=== PATIENT | female | born 1930 | race Asian ===

== ENCOUNTER 2016-10-21 21:32 | Inpatient (IN) | payer MEDICARE, MEDICAID ==
[~2016-10-21] VITALS: Ht 162.6 cm; Wt 70.0 kg
[~2016-10-21 21:32] MED LIST: ACET325T21 PO; AMLO10TA2 PO; AMLO5TAB2 PO; ASPI-515 PO; AZIT500T77 PO; CARV6.252 PO; CEPH-376 PO; FAMO20TA7 PO; FLUT1DIS3 INH; FURO20TA3 PO; GUAI200T3 PO; LEVO750T26 PO; LISI-170 PO; METF500T PO; METO25TA35 PO; METO50TA82 PO; OMEP-110 PO; OMEP40CA6 PO; POTA20TA14 PO
[2016-10-21] MEDS ORDERED: SODIUM CHLORIDE FLUSH 10ML SYR IVF ONE (23:00)
[2016-10-21] MEDS ORDERED: MORPHINE SULFATE 4 MG/ML, 1ML IVPush PRN (23:00)
[2016-10-21 23:08] LABS: PATH.CAST-FLAG NOT PRESENT; SPERM-FLAG NOT PRESENT; SRC-FLAG NOT PRESENT; XTAL-FLAG NOT PRESENT; YLC-FLAG NOT PRESENT
[2016-10-21 23:19] LABS: BLOOD UREA NITROGEN 15 mg/dL (7-18)
[2016-10-21 23:22] LABS: ASPARTATE AMINO TRANSFERASE 20 U/L (15-37)
[2016-10-21 23:38] LABS: DIFF TOTAL CELLS COUNTED 100 CELL DIFF
[2016-10-21 23:40] LABS: VERIFY COUNTS? YES
[2016-10-21 23:41] LABS: ANISOCYTOSIS 1+; POLYCHROMASIA 1+
[2016-10-21 23:42] LABS: MICROCYTOSIS 1+
[2016-10-21 23:43] LABS: LARGE PLATELETS 1+
[2016-10-22] VITALS (11 sets, daily range): BP systolic 101–159; BP diastolic 61–78
[2016-10-22] MEDS ORDERED: VANCOMYCIN PMX 1GM/200ML 200 ML IV ONE
[2016-10-22] MEDS ORDERED: ACYCLOVIR IV ONE
[2016-10-22] MEDS ORDERED: SODIUM CHLORIDE 0.9% IV ONE
[2016-10-22] MEDS ORDERED: AMPICILLIN 1 GM in SODIUM CHLORIDE 0.9% 50 ML IV ONE
[2016-10-22] MEDS ORDERED: CEFTRIAXONE PMX 1GM/50ML 0 ML ONE (00:17)
[2016-10-22] MEDS ORDERED: CEFTRIAXONE PMX 2GM/50ML 50 ML ONE (00:19)
[2016-10-22] MEDS ORDERED: CEFTRIAXONE PMX 2GM/50ML 50 ML IVPB ONE (00:30)
[2016-10-22] MEDS ORDERED: OMNIPAQUE 350 MG/ML, 100ML BOTTLE ONE (00:38)
[2016-10-22] MEDS ORDERED: VANCOMYCIN PER PHARMACY MC PRN (05:00)
[2016-10-22] MEDS ORDERED: PHARMACOKINETIC MONITORING MC PRN (06:00)
[2016-10-22] MEDS ORDERED: MORPHINE SULFATE 4 MG/ML, 1ML IVPush PRN (06:00)
[2016-10-22] MEDS ORDERED: AMPICILLIN 1 GM in SODIUM CHLORIDE 0.9% 50 ML IV SCH (06:00)
[2016-10-22] MEDS: INSULIN ASPART 100 UNITS/ML, PEN SQ-INSULIN SCH ×4 (07:00→20:44)
[2016-10-22] MEDS: PIPERACILLIN/TAZO/PMX 3.375GM 50 ML IV SCH ×2 (11:00→19:00)
[2016-10-22] MEDS: PIPERACILLIN/TAZO 3.375 GM in SODIUM CHLORIDE 0.9% 50 ML IV SCH ×2 (11:53→20:43)
[2016-10-22] MEDS: SODIUM CHLORIDE 0.9% 1,000 ML IV SCH ×2 (11:53→23:20)
[2016-10-22] MEDS: ACYCLOVIR 600 MG in SODIUM CHLORIDE 0.9% 100 ML IV SCH ×2 (12:29→21:37)
[2016-10-22 12:49] LABS: RAPID INFLUENZA A Negative (Negative); RAPID INFLUENZA B Negative (Negative)
[2016-10-22] MEDS ORDERED: DIPHENHYDRAMINE 25 MG CAPSULE PO ONE (13:30)
[2016-10-22] MEDS ORDERED: FUROSEMIDE 20 MG TABLET PO SCH (17:00)
[2016-10-22] MEDS ORDERED: CARVEDILOL 6.25 MG TABLET PO SCH (18:00)
[2016-10-23] MEDS ORDERED: CEFTRIAXONE PMX 2GM/50ML 50 ML IVPB SCH
[2016-10-23 02:26] VITALS: BP 155/79
[2016-10-23] MEDS: PIPERACILLIN/TAZO/PMX 3.375GM 50 ML IV SCH ×2 (03:00→04:13)
[2016-10-23] MEDS: ACYCLOVIR 600 MG in SODIUM CHLORIDE 0.9% 100 ML IV SCH ×3 (05:24→23:53)
[2016-10-23 05:39] LABS: ASPARTATE AMINO TRANSFERASE 22 U/L (15-37); BLOOD UREA NITROGEN 12 mg/dL (7-18)
[2016-10-23 06:35] VITALS: BP 136/68
[2016-10-23] MEDS ORDERED: AMLODIPINE 5 MG TABLET PO SCH (09:00)
[2016-10-23] MEDS: INSULIN ASPART 100 UNITS/ML, PEN SQ-INSULIN SCH ×4 (09:30→21:05)
[2016-10-23] MEDS ORDERED: LIDOCAINE 1%, 20ML ONE (11:55)
[2016-10-23] MEDS: CEFEPIME 1 GM in DEXTROSE 5% 50 ML IV SCH ×2 (13:15→20:50)
[2016-10-23 14:02] VITALS: BP 161/72
[2016-10-23 15:26] LABS: GLUCOSE, CSF 111 mg/dL (40-80)
[2016-10-23] MEDS ORDERED: BACITRACIN ZINC OINT 500U/GM, 0.9 GM ONE (16:00)
[2016-10-23] MEDS ORDERED: VANCOMYCIN PMX 1GM/200ML 200 ML IV SCH (17:00)
[2016-10-23 19:38] VITALS: BP 170/73
[2016-10-24 03:33] VITALS: BP 197/80
[2016-10-24] MEDS: CEFEPIME 1 GM in DEXTROSE 5% 50 ML IV SCH ×2 (04:28→11:45)
[2016-10-24] MEDS ORDERED: LABETALOL 5MG/ML, 20ML IVPush PRN ×2 (04:30→12:47)
[2016-10-24 05:55] LABS: BLOOD UREA NITROGEN 9 mg/dL (7-18)
[2016-10-24] MEDS: ACYCLOVIR 600 MG in SODIUM CHLORIDE 0.9% 100 ML IV SCH ×2 (07:50→17:06)
[2016-10-24] MEDS: INSULIN ASPART 100 UNITS/ML, PEN SQ-INSULIN SCH ×4 (07:51→21:27)
[2016-10-24 08:00] VITALS: BP 158/68
[2016-10-24 10:35] VITALS: BP 137/68
[2016-10-24 13:20] VITALS: BP 155/69
[2016-10-24 19:27] VITALS: BP 178/73
[2016-10-24] MEDS ORDERED: ALBUTEROL SULFATE 2.5 MG/3 ML ONE (23:38)
[2016-10-24] MEDS: ALBUTEROL SULFATE 2.5MG/0.5ML NPPB SCH (23:57)
[2016-10-25] MEDS ORDERED: FUROSEMIDE 40 MG/4 ML IV ONE
[2016-10-25] MEDS: ACYCLOVIR 600 MG in SODIUM CHLORIDE 0.9% 100 ML IV SCH ×3 (00:20→16:20)
[2016-10-25 01:19] VITALS: BP 159/65
[2016-10-25 05:17] LABS: BLOOD UREA NITROGEN 8 mg/dL (7-18)
[2016-10-25 05:54] LABS: DIFF TOTAL CELLS COUNTED 100 CELL DIFF
[2016-10-25 06:00] LABS: ANISOCYTOSIS 1+; POLYCHROMASIA 1+; VERIFY COUNTS? YES
[2016-10-25 06:01] LABS: GIANT PLATELETS 1+; LARGE PLATELETS 1+
[2016-10-25 06:02] LABS: MICROCYTOSIS 1+
[2016-10-25 06:41] VITALS: BP 170/80
[2016-10-25] MEDS ORDERED: ALBUTEROL SULFATE 2.5 MG/3 ML ONE ×2 (07:46→14:08)
[2016-10-25] MEDS: ALBUTEROL SULFATE 2.5MG/0.5ML NPPB SCH (07:55)
[2016-10-25] MEDS: INSULIN ASPART 100 UNITS/ML, PEN SQ-INSULIN SCH ×4 (08:11→20:56)
[2016-10-25] MEDS ORDERED: SODIUM CHLORIDE 0.9% 1,000 ML IV SCH (11:00)
[2016-10-25 13:39] VITALS: BP 179/96
[2016-10-25] MEDS ORDERED: ALBUTEROL SULFATE 2.5MG/0.5ML NPPB PRN (15:00)
[2016-10-25] MEDS ORDERED: FUROSEMIDE 20 MG/2 ML IV ONE (18:00)
[2016-10-25 18:53] VITALS: BP 188/100
[2016-10-25 19:05] LABS: ABG COLLECTION SITE RIGHT RADIAL; COLLATERAL CIRCULATION TESTING NORMAL
[2016-10-26] MEDS: ACYCLOVIR 600 MG in SODIUM CHLORIDE 0.9% 100 ML IV SCH ×2 (00:22→08:08)
[2016-10-26 02:45] VITALS: BP 140/87
[2016-10-26 06:19] LABS: BLOOD UREA NITROGEN 13 mg/dL (7-18)
[2016-10-26 06:54] LABS: DIFF TOTAL CELLS COUNTED 100 CELL DIFF
[2016-10-26 06:56] LABS: VERIFY COUNTS? YES
[2016-10-26 06:58] LABS: ANISOCYTOSIS 1+; GIANT PLATELETS 1+; LARGE PLATELETS 1+
[2016-10-26 06:59] LABS: POLYCHROMASIA 1+
[2016-10-26 07:59] VITALS: BP 168/96
[2016-10-26] MEDS: HYDROcodone/APAP 5/325 TABLET PO PRN ×2 (08:07→21:44)
[2016-10-26] MEDS: FUROSEMIDE 20 MG TABLET PO SCH ×2 (08:08→16:23)
[2016-10-26] MEDS: INSULIN ASPART 100 UNITS/ML, PEN SQ-INSULIN SCH ×4 (08:08→20:41)
[2016-10-26] MEDS ORDERED: SODIUM CHLORIDE 0.9% 1,000 ML IV SCH (11:00)
[2016-10-26 13:38] VITALS: BP 111/70
[2016-10-26] MEDS ORDERED: OMNIPAQUE 350 MG/ML, 100ML BOTTLE ONE (15:11)
[2016-10-26 19:42] VITALS: BP 162/81
[2016-10-27 01:26] VITALS: BP 151/87
[2016-10-27 05:30] LABS: BLOOD UREA NITROGEN 21 mg/dL (7-18)
[2016-10-27 05:41] LABS: DIFF TOTAL CELLS COUNTED 100 CELL DIFF
[2016-10-27 05:44] LABS: ANISOCYTOSIS 1+; HYPOCHROMIA 1+; VERIFY COUNTS? YES
[2016-10-27 05:46] LABS: LARGE PLATELETS 1+
[2016-10-27 09:08] VITALS: BP 158/80
[2016-10-27] MEDS: FUROSEMIDE 20 MG TABLET PO SCH ×2 (09:17→17:00)
[2016-10-27] MEDS: INSULIN ASPART 100 UNITS/ML, PEN SQ-INSULIN SCH ×4 (09:18→21:22)
[2016-10-27 12:30] VITALS: BP 145/80
[2016-10-27] MEDS: HYDROcodone/APAP 5/325 TABLET PO PRN ×2 (15:36→21:31)
[2016-10-27 19:46] VITALS: BP 108/63
[2016-10-28 01:05] VITALS: BP 149/79
[2016-10-28] MEDS: HYDROcodone/APAP 5/325 TABLET PO PRN ×3 (04:30→20:18)
[2016-10-28 05:23] LABS: BLOOD UREA NITROGEN 21 mg/dL (7-18)
[2016-10-28 05:57] LABS: DIFF TOTAL CELLS COUNTED 100 CELL DIFF
[2016-10-28 05:58] LABS: ANISOCYTOSIS 1+; HYPOCHROMIA 1+; VERIFY COUNTS? YES
[2016-10-28 05:59] LABS: LARGE PLATELETS 1+
[2016-10-28 07:29] VITALS: BP 145/83
[2016-10-28] MEDS: FUROSEMIDE 20 MG TABLET PO SCH ×2 (07:45→17:17)
[2016-10-28] MEDS: INSULIN ASPART 100 UNITS/ML, PEN SQ-INSULIN SCH ×4 (07:51→20:20)
[2016-10-28 12:43] VITALS: BP 158/81
[2016-10-28] MEDS: DILTIAZEM 5 MG/ML, 5ML IVPush PRN (17:52)
[2016-10-28 20:04] VITALS: BP 158/85
[2016-10-29 00:41] VITALS: BP 158/87
[2016-10-29] MEDS: DILTIAZEM 5 MG/ML, 5ML IVPush PRN (00:44)
[2016-10-29] MEDS: HYDROcodone/APAP 5/325 TABLET PO PRN ×4 (03:54→20:19)
[2016-10-29 04:58] LABS: BLOOD UREA NITROGEN 13 mg/dL (7-18)
[2016-10-29 05:38] LABS: DIFF TOTAL CELLS COUNTED 100 CELL DIFF
[2016-10-29 05:40] LABS: ANISOCYTOSIS 1+; VERIFY COUNTS? YES
[2016-10-29 05:43] LABS: HYPOCHROMIA 1+
[2016-10-29 05:44] LABS: LARGE PLATELETS 1+
[2016-10-29 07:42] VITALS: BP 151/83
[2016-10-29] MEDS: INSULIN ASPART 100 UNITS/ML, PEN SQ-INSULIN SCH ×4 (08:11→20:20)
[2016-10-29] MEDS: FUROSEMIDE 20 MG TABLET PO SCH ×2 (08:21→16:29)
[2016-10-29] MEDS ORDERED: DILTIAZEM 5 MG/ML, 5ML IVPush PRN (09:00)
[2016-10-29] MEDS ORDERED: POTASSIUM CHLORIDE 20 MEQ TAB.ER.PRT PO ONE (09:00)
[2016-10-29 10:17] LABS: ABG COLLECTION SITE RIGHT RADIAL; COLLATERAL CIRCULATION TESTING NORMAL
[2016-10-29] MEDS: CHOLECALCIFEROL 1,000 UNIT TABLET PO SCH (11:35)
[2016-10-29 11:38] LABS: IS PT STATUS REG ER OR PRE ER? NO
[2016-10-29 13:45] VITALS: BP_SYST 138; BP_SYST 53; BP_DIAS 75; BP_DIAS 81
[2016-10-29 16:27] LABS: IS PT STATUS REG ER OR PRE ER? NO
[2016-10-29] MEDS: DILTIAZEM 30 MG TABLET PO SCH ×2 (16:31→20:19)
[2016-10-29 18:59] VITALS: BP 119/73
[2016-10-29 20:22] VITALS: BP 130/61
[2016-10-30 01:06] VITALS: BP 120/66
[2016-10-30] MEDS: HYDROcodone/APAP 5/325 TABLET PO PRN ×5 (01:33→20:21)
[2016-10-30] MEDS: DILTIAZEM 30 MG TABLET PO SCH ×4 (05:33→20:21)
[2016-10-30 06:21] LABS: BLOOD UREA NITROGEN 14 mg/dL (7-18)
[2016-10-30 06:51] LABS: DIFF TOTAL CELLS COUNTED 100 CELL DIFF
[2016-10-30 06:53] LABS: VERIFY COUNTS? YES
[2016-10-30 06:54] LABS: ANISOCYTOSIS 1+; HYPOCHROMIA 1+
[2016-10-30 06:56] LABS: LARGE PLATELETS 1+
[2016-10-30] MEDS: INSULIN ASPART 100 UNITS/ML, PEN SQ-INSULIN SCH ×4 (07:00→20:21)
[2016-10-30 07:47] VITALS: BP 110/71
[2016-10-30] MEDS: FUROSEMIDE 20 MG TABLET PO SCH ×2 (08:27→16:29)
[2016-10-30] MEDS: CHOLECALCIFEROL 1,000 UNIT TABLET PO SCH (08:27)
[2016-10-30 13:37] VITALS: BP 132/75
[2016-10-30 19:48] VITALS: BP 124/57
[2016-10-31] MEDS: HYDROcodone/APAP 5/325 TABLET PO PRN ×4 (01:29→21:29)
[2016-10-31 01:36] VITALS: BP 115/68
[2016-10-31 05:11] LABS: BLOOD UREA NITROGEN 16 mg/dL (7-18)
[2016-10-31] MEDS: DILTIAZEM 30 MG TABLET PO SCH ×4 (05:23→21:30)
[2016-10-31 06:48] VITALS: BP 122/55
[2016-10-31] MEDS: INSULIN ASPART 100 UNITS/ML, PEN SQ-INSULIN SCH ×4 (08:53→21:33)
[2016-10-31] MEDS: FUROSEMIDE 20 MG TABLET PO SCH ×2 (08:54→17:03)
[2016-10-31] MEDS: CHOLECALCIFEROL 1,000 UNIT TABLET PO SCH (08:54)
[2016-10-31 13:12] VITALS: BP 116/66
[2016-10-31 13:31] LABS: ANA SCREEN POSITIVE (Negative)
[2016-10-31 19:02] VITALS: BP 118/68
[2016-10-31] MEDS: ALBUTEROL/IPRATROPIUM 2.5MG/0.5MG, 3 ML NPPB SCH (20:59)
[2016-10-31] MEDS ORDERED: TEMPLATE NON-FORMULARY MED. (Fluticasone/Salmeterol** (Advair 250-50 Diskus**) 1 PUFF) INH SCH (21:00)
[2016-10-31] MEDS: DEXAMETHASONE 4 MG/ML, 5ML IVPush SCH (21:30)
[2016-11-01 02:18] VITALS: BP 112/60
[2016-11-01] MEDS: DEXAMETHASONE 4 MG/ML, 5ML IVPush SCH ×4 (04:44→21:03)
[2016-11-01] MEDS: HYDROcodone/APAP 5/325 TABLET PO PRN ×2 (04:44→21:04)
[2016-11-01] MEDS: DILTIAZEM 30 MG TABLET PO SCH ×4 (04:55→21:03)
[2016-11-01 05:47] LABS: BLOOD UREA NITROGEN 16 mg/dL (7-18)
[2016-11-01 06:25] LABS: DIFF TOTAL CELLS COUNTED 100 CELL DIFF
[2016-11-01 06:26] LABS: VERIFY COUNTS? YES
[2016-11-01 06:27] LABS: ANISOCYTOSIS 1+; MICROCYTOSIS 1+; POLYCHROMASIA 1+
[2016-11-01 06:28] LABS: LARGE PLATELETS 1+
[2016-11-01 07:43] VITALS: BP 120/75
[2016-11-01 08:13] LABS: WESTNILEVIRUSIGG SEE PRINTED REPORT; WESTNILEVIRUSIGM SEE PRINTED REPORT
[2016-11-01] MEDS: ALBUTEROL/IPRATROPIUM 2.5MG/0.5MG, 3 ML NPPB SCH ×2 (08:50→19:30)
[2016-11-01] MEDS: INSULIN ASPART 100 UNITS/ML, PEN SQ-INSULIN SCH ×4 (09:33→21:04)
[2016-11-01] MEDS: FUROSEMIDE 20 MG TABLET PO SCH ×2 (09:33→16:46)
[2016-11-01] MEDS: CHOLECALCIFEROL 1,000 UNIT TABLET PO SCH (09:34)
[2016-11-01] MEDS: FLUTICASONE/VILANTEROL 200-25MCG/INH INH SCH (10:28)
[2016-11-01] MEDS ORDERED: MAGNESIUM HYDROXIDE 8%, 30ML UDC PO PRN (13:30)
[2016-11-01] MEDS ORDERED: POLYETHYLENE GLYCOL 17 GM PACKET PO PRN (13:30)
[2016-11-01 13:51] VITALS: BP 114/52
[2016-11-01 19:58] VITALS: BP 112/58
[2016-11-02] MEDS: DEXAMETHASONE 4 MG/ML, 5ML IVPush SCH ×4 (03:15→21:07)
[2016-11-02] MEDS: HYDROcodone/APAP 5/325 TABLET PO PRN ×2 (04:01→21:09)
[2016-11-02 05:54] VITALS: BP 124/65
[2016-11-02] MEDS: DILTIAZEM 30 MG TABLET PO SCH ×4 (05:59→21:08)
[2016-11-02 07:48] VITALS: BP 120/67
[2016-11-02] MEDS: ALBUTEROL/IPRATROPIUM 2.5MG/0.5MG, 3 ML NPPB SCH ×2 (09:00→19:10)
[2016-11-02] MEDS: CHOLECALCIFEROL 1,000 UNIT TABLET PO SCH (09:23)
[2016-11-02] MEDS: FLUTICASONE/VILANTEROL 200-25MCG/INH INH SCH (09:23)
[2016-11-02] MEDS: FUROSEMIDE 20 MG TABLET PO SCH ×2 (09:23→16:20)
[2016-11-02] MEDS: INSULIN ASPART 100 UNITS/ML, PEN SQ-INSULIN SCH ×4 (09:24→21:09)
[2016-11-02 13:00] VITALS: BP 118/61
[2016-11-02] MEDS: ARTIFICIAL TEARS OPHTH SOLN 15ML EACHEYE PRN (16:20)
[2016-11-02 18:51] VITALS: BP 119/58
[2016-11-03 00:54] VITALS: BP 128/63
[2016-11-03] MEDS: DEXAMETHASONE 4 MG/ML, 5ML IVPush SCH ×4 (03:21→21:36)
[2016-11-03 05:16] LABS: BLOOD UREA NITROGEN 33 mg/dL (7-18)
[2016-11-03] MEDS: DILTIAZEM 30 MG TABLET PO SCH ×4 (05:26→21:36)
[2016-11-03 06:48] VITALS: BP 123/64
[2016-11-03] MEDS: INSULIN ASPART 100 UNITS/ML, PEN SQ-INSULIN SCH ×4 (08:32→21:43)
[2016-11-03] MEDS: FUROSEMIDE 20 MG TABLET PO SCH ×2 (08:33→16:47)
[2016-11-03] MEDS: FLUTICASONE/VILANTEROL 200-25MCG/INH INH SCH (08:33)
[2016-11-03] MEDS: CHOLECALCIFEROL 1,000 UNIT TABLET PO SCH (08:33)
[2016-11-03] MEDS: ALBUTEROL/IPRATROPIUM 2.5MG/0.5MG, 3 ML NPPB SCH ×2 (10:50→19:42)
[2016-11-03] MEDS ORDERED: INSULIN ASPART 100 UNITS/ML, PEN SQ-INSULIN ONE (12:30)
[2016-11-03 14:27] VITALS: BP 127/66
[2016-11-03] MEDS: HYDROcodone/APAP 5/325 TABLET PO PRN ×2 (16:47→22:38)
[2016-11-03 18:55] VITALS: BP 125/71
[2016-11-04 02:35] VITALS: BP 115/57
[2016-11-04] MEDS: DEXAMETHASONE 4 MG/ML, 5ML IVPush SCH ×3 (03:20→15:47)
[2016-11-04] MEDS: DILTIAZEM 30 MG TABLET PO SCH ×2 (05:36→11:34)
[2016-11-04 07:01] VITALS: BP 118/63
[2016-11-04] MEDS: CHOLECALCIFEROL 1,000 UNIT TABLET PO SCH (08:46)
[2016-11-04] MEDS: FUROSEMIDE 20 MG TABLET PO SCH ×2 (08:46→16:22)
[2016-11-04] MEDS: FLUTICASONE/VILANTEROL 200-25MCG/INH INH SCH (08:46)
[2016-11-04] MEDS: INSULIN ASPART 100 UNITS/ML, PEN SQ-INSULIN SCH ×3 (08:47→16:20)
[2016-11-04] MEDS: ARTIFICIAL TEARS OPHTH SOLN 15ML EACHEYE PRN ×2 (08:53→18:18)
[2016-11-04 13:59] VITALS: BP 143/68
[2016-11-04 18:36] VITALS: BP 120/65
[2016-11-05] MEDS: ARTIFICIAL TEARS OPHTH SOLN 15ML EACHEYE PRN ×2 (00:04→07:57)
[2016-11-05] MEDS: INSULIN ASPART 100 UNITS/ML, PEN SQ-INSULIN SCH ×4 (00:15→17:16)
[2016-11-05 00:34] VITALS: BP 133/75
[2016-11-05 07:30] VITALS: BP 158/77
[2016-11-05] MEDS: CHOLECALCIFEROL 1,000 UNIT TABLET PO SCH (07:55)
[2016-11-05] MEDS: FUROSEMIDE 20 MG TABLET PO SCH ×2 (07:56→17:16)
[2016-11-05] MEDS: FLUTICASONE/VILANTEROL 200-25MCG/INH INH SCH (07:56)
[2016-11-05] MEDS ORDERED: DILTIAZEM 120 MG CAP.ER.24H PO SCH (09:00)
[2016-11-05 12:57] VITALS: BP 145/62
[2016-11-05] MEDS ORDERED: DILT120C9 PO (14:18)
== END 2016-11-05 17:20 | disposition home or self-care (01) | DRG 97 ==
LOC: ED 23:59 → EDIP 10-22 01:28 → 3NE 10-22 03:30 → 4WST 10-27 12:09
PROVIDERS: ADMIT Internal Medicine; ATTEND Internal Medicine
PROC: 009U3ZX Drainage of Spinal Canal, Percutaneous Approach, Diagnostic (ICD-10-PCS; principal; 2016-10-23)
PROC: 30233R1 Transfusion of Nonautologous Platelets into Peripheral Vein, Percutaneous Approach (ICD-10-PCS; 2016-10-23)
DX: G03.0 Nonpyogenic meningitis (principal); J96.21 Acute and chronic respiratory failure with hypoxia; D69.3 Immune thrombocytopenic purpura; D68.69 Other thrombophilia; I50.30 Unspecified diastolic (congestive) heart failure; J44.0 Chronic obstructive pulmonary disease with (acute) lower respiratory infection; M46.20 Osteomyelitis of vertebra, site unspecified; E22.2 Syndrome of inappropriate secretion of antidiuretic hormone; D63.8 Anemia in other chronic diseases classified elsewhere; E03.9 Hypothyroidism, unspecified; E11.9 Type 2 diabetes mellitus without complications; E83.51 Hypocalcemia; G44.52 New daily persistent headache (NDPH); H90.5 Unspecified sensorineural hearing loss; I08.3 Combined rheumatic disorders of mitral, aortic and tricuspid valves; I11.0 Hypertensive heart disease with heart failure; I25.2 Old myocardial infarction; I27.2 Other secondary pulmonary hypertension; I48.0 Paroxysmal atrial fibrillation; K21.9 Gastro-esophageal reflux disease without esophagitis; M19.90 Unspecified osteoarthritis, unspecified site; M50.30 Other cervical disc degeneration, unspecified cervical region; Z77.22 Contact with and (suspected) exposure to environmental tobacco smoke (acute) (chronic); Z86.711 Personal history of pulmonary embolism; Z87.891 Personal history of nicotine dependence; Z91.81 History of falling; Z99.81 Dependence on supplemental oxygen; Z79.899 Other long term (current) drug therapy; Z88.8 Allergy status to other drugs, medicaments and biological substances; M31.6 Other giant cell arteritis
CPT/HCPCS: 36415; 36430; 36600; 62270; 70450; 70492; 70496; 70498; 70551; 71010; 72141; 72146; 74230; 76700; 80048; 80053; 81001; 81170; 81270; 82550; 82668; 82803; 82945; 82947; 82962; 83036; 83605; 83735; 83880; 83930; 83935; 84145; 84157; 84300; 84439; 84443; 84484; 85025; 85540; 85610; 85651; 85730; 86038; 86039; 86140; 86235; 86592; 86788; 86789; 86850; 86900; 87040; 87070; 87075; 87086; 87205; 87400; 87529; 89051; 93005; 93306; 93970; 94640; J0133; J0290; J0692; J0696; J1100; J1815; J1940; J2543; J3370; J3490; J7611; J7620; Q9967; J7030; P9035; Q0163

== ENCOUNTER 2016-11-22 15:23 | Emergency (ER) | payer MEDICARE, MEDICAID ==
[~2016-11-22] VITALS: Ht 162.6 cm; Wt 59.1 kg
[~2016-11-22 15:23] MED LIST changes: +DILT120C9 PO
[2016-11-22] MEDS ORDERED: SODIUM CHLORIDE 0.9% 1,000 ML IV ONE ×2 (15:45→17:27)
[2016-11-22 16:16] LABS: ASPARTATE AMINO TRANSFERASE 9 U/L (15-37); BLOOD UREA NITROGEN 14 mg/dL (7-18)
[2016-11-22 16:23] LABS: IS PT STATUS REG ER OR PRE ER? YES
[2016-11-22 16:41] LABS: DIFF TOTAL CELLS COUNTED 100 CELL DIFF
[2016-11-22 16:42] LABS: VERIFY COUNTS? YES
[2016-11-22 16:44] LABS: ANISOCYTOSIS 2+; MICROCYTOSIS 1+
[2016-11-22 16:45] LABS: OVALOCYTES 1+; POIKILOCYTOSIS 1+; POLYCHROMASIA 1+
[2016-11-22 16:47] LABS: LARGE PLATELETS 1+
[2016-11-22 17:01] LABS: PATH.CAST-FLAG NOT PRESENT; SPERM-FLAG NOT PRESENT; SRC-FLAG NOT PRESENT; XTAL-FLAG NOT PRESENT; YLC-FLAG NOT PRESENT
[2016-11-22] MEDS ORDERED: SODIUM CHLORIDE FLUSH 10ML SYR IVF ONE (17:30)
[2016-11-22] MEDS ORDERED: CEFTRIAXONE PMX 1GM/50ML 50 ML ONE (19:14)
[2016-11-22] MEDS ORDERED: CEFTRIAXONE PMX 1GM/50ML 50 ML IV ONE (19:30)
[2016-11-22 20:53] VITALS: BP 93/47
== END 2016-11-22 20:56 | disposition home or self-care (01) ==
LOC: ED 17:02
DX: T46.1X5A Adverse effect of calcium-channel blockers, initial encounter (principal); N39.0 Urinary tract infection, site not specified; Y92.9 Unspecified place or not applicable; I11.0 Hypertensive heart disease with heart failure; I50.9 Heart failure, unspecified; J44.9 Chronic obstructive pulmonary disease, unspecified; K21.9 Gastro-esophageal reflux disease without esophagitis; M19.90 Unspecified osteoarthritis, unspecified site
CPT/HCPCS: 36415; 71010; 80053; 81001; 83605; 83690; 84145; 84484; 85025; 85610; 85730; 87040; 87086; 93005; 96361; 96365; 99285; J0696; J7030

== ENCOUNTER 2017-01-21 20:19 | Inpatient (IN) | payer MEDICARE, MEDICAID ==
[~2017-01-21] VITALS: Ht 162.6 cm; Wt 70.6 kg
[~2017-01-21 20:19] MED LIST changes: +AZIT500T5 PO; -AZIT500T77 PO
[2017-01-21] MEDS ORDERED: SODIUM CHLORIDE FLUSH 10ML SYR IVF ONE (21:00)
[2017-01-21 22:01] LABS: ASPARTATE AMINO TRANSFERASE 20 U/L (15-37); BLOOD UREA NITROGEN 13 mg/dL (7-18)
[2017-01-21 22:07] LABS: IS PT STATUS REG ER OR PRE ER? YES
[2017-01-21 22:16] LABS: HEMATOCRIT 29.7 % (34.6-47.8); HEMOGLOBIN 9.4 g/dL (11.7-16.4); WHITE BLOOD COUNT 39.8 x10^3/uL (3.4-10)
[2017-01-21 22:19] LABS: DIFF TOTAL CELLS COUNTED 100 CELL DIFF
[2017-01-21 22:30] LABS: VERIFY COUNTS? YES
[2017-01-21 22:31] LABS: ANISOCYTOSIS 1+; POLYCHROMASIA 1+
[2017-01-21 22:32] LABS: MICROCYTOSIS 1+
[2017-01-21 22:33] LABS: HYPOCHROMIA 1+; LARGE PLATELETS 1+
[2017-01-21] MEDS ORDERED: OMNIPAQUE 350 MG/ML, 100ML BOTTLE ONE (23:30)
[2017-01-22] MEDS ORDERED: SODIUM CHLORIDE FLUSH 10ML SYR IVF PRN (01:00)
[2017-01-22] MEDS ORDERED: POLYETHYLENE GLYCOL 17 GM PACKET PO PRN (01:00)
[2017-01-22] MEDS ORDERED: BISACODYL 10 MG SUPP PR PRN (01:00)
[2017-01-22] MEDS ORDERED: ONDANSETRON 2MG/ML, 2ML IVPush PRN (01:00)
[2017-01-22] MEDS ORDERED: ONDANSETRON 2MG/ML, 2ML ONE (01:12)
[2017-01-22] MEDS ORDERED: MORPHINE SULFATE 4 MG/ML, 1ML ONE (01:12)
[2017-01-22] MEDS: SODIUM CHLORIDE 0.9% 1,000 ML IV SCH ×2 (01:21→16:48)
[2017-01-22] MEDS ORDERED: ONDANSETRON 2MG/ML, 2ML IVPush ONE (01:30)
[2017-01-22] MEDS ORDERED: MORPHINE SULFATE 4 MG/ML, 1ML IVPush PRN (01:30)
[2017-01-22 05:03] LABS: HEMATOCRIT 28.4 % (34.6-47.8); HEMOGLOBIN 9.1 g/dL (11.7-16.4)
[2017-01-22 05:07] LABS: ASPARTATE AMINO TRANSFERASE 15 U/L (15-37); BLOOD UREA NITROGEN 12 mg/dL (7-18)
[2017-01-22 05:26] LABS: DIFF TOTAL CELLS COUNTED 100 CELL DIFF
[2017-01-22 05:28] LABS: HYPOCHROMIA 1+; MICROCYTOSIS 1+; POLYCHROMASIA 1+; VERIFY COUNTS? YES
[2017-01-22 05:29] LABS: LARGE PLATELETS 1+
[2017-01-22] MEDS ORDERED: CARVEDILOL 6.25 MG TABLET PO SCH (06:00)
[2017-01-22 06:05] VITALS: BP 140/60
[2017-01-22] MEDS: SENNA/DOCUSATE TABLET PO SCH (08:02)
[2017-01-22] MEDS: ACETAMINOPHEN 325 MG TABLET PO PRN ×2 (08:02→16:46)
[2017-01-22] MEDS ORDERED: AMLODIPINE 5 MG TABLET PO SCH (09:00)
[2017-01-22] MEDS ORDERED: FURO-93 PO (10:08)
[2017-01-22] MEDS ORDERED: CARV3.1212 PO (10:08)
[2017-01-22] MEDS ORDERED: OMEP-110 PO (10:08)
[2017-01-22] MEDS ORDERED: POTA10TA5 PO (10:08)
[2017-01-22] MEDS: FAMOTIDINE 20 MG TABLET PO SCH ×2 (13:18→20:16)
[2017-01-22] MEDS ORDERED: LIDOCAINE 1%, 20ML ONE (16:01)
[2017-01-22 16:15] LABS: IS PT STATUS REG ER OR PRE ER? NO
[2017-01-22 16:36] LABS: CYTOLOGY BODY FLUID RECD INTO PATHOLOGY; CYTOLOGY BODY FLUID SOURCE OTHER - SEE COMMENT
[2017-01-22] MEDS: FLUTICASONE/VILANTEROL 100-25MCG/INH INH SCH (16:48)
[2017-01-22 16:51] VITALS: BP 118/69
[2017-01-22 18:46] VITALS: BP 125/67
[2017-01-22] MEDS: FUROSEMIDE 20 MG TABLET PO SCH (20:16)
[2017-01-23 02:22] VITALS: BP 129/60
[2017-01-23] MEDS: ACETAMINOPHEN 325 MG TABLET PO PRN ×4 (02:55→22:16)
[2017-01-23] MEDS: SODIUM CHLORIDE 0.9% 1,000 ML IV SCH (03:24)
[2017-01-23 05:33] LABS: HEMATOCRIT 26.4 % (34.6-47.8); HEMOGLOBIN 8.4 g/dL (11.7-16.4); WHITE BLOOD COUNT 29.1 x10^3/uL (3.4-10)
[2017-01-23 05:56] LABS: DIFF TOTAL CELLS COUNTED 100 CELL DIFF
[2017-01-23 06:00] LABS: VERIFY COUNTS? YES
[2017-01-23 06:01] LABS: ANISOCYTOSIS 1+; HYPOCHROMIA 1+; POLYCHROMASIA 1+
[2017-01-23 06:02] LABS: LARGE PLATELETS 1+
[2017-01-23 06:14] LABS: ASPARTATE AMINO TRANSFERASE 20 U/L (15-37); BLOOD UREA NITROGEN 14 mg/dL (7-18)
[2017-01-23 07:27] VITALS: BP 117/64
[2017-01-23] MEDS: FLUTICASONE/VILANTEROL 100-25MCG/INH INH SCH (07:41)
[2017-01-23] MEDS: FUROSEMIDE 20 MG TABLET PO SCH ×2 (07:41→19:48)
[2017-01-23] MEDS: SENNA/DOCUSATE TABLET PO SCH (07:41)
[2017-01-23] MEDS: POTASSIUM CHLORIDE 10 MEQ TABLET.ER PO SCH (07:41)
[2017-01-23] MEDS: FAMOTIDINE 20 MG TABLET PO SCH (07:41)
[2017-01-23] MEDS: OMEPRAZOLE 20 MG CAPSULE.DR PO SCH (07:42)
[2017-01-23] MEDS: CARVEDILOL 3.125 MG TABLET PO SCH (07:42)
[2017-01-23 14:17] VITALS: BP 119/61
[2017-01-23] MEDS ORDERED: LIDOCAINE 1%, 20ML ONE (16:10)
[2017-01-23 19:23] VITALS: BP 131/68
[2017-01-24 01:11] VITALS: BP 116/64
[2017-01-24 04:59] LABS: HEMOGLOBIN 8.4 g/dL (11.7-16.4); WHITE BLOOD COUNT 27.6 x10^3/uL (3.4-10)
[2017-01-24 05:05] LABS: BLOOD UREA NITROGEN 9 mg/dL (7-18)
[2017-01-24 05:10] LABS: ASPARTATE AMINO TRANSFERASE 15 U/L (15-37)
[2017-01-24] MEDS: ACETAMINOPHEN 325 MG TABLET PO PRN ×2 (05:32→21:43)
[2017-01-24 05:45] LABS: DIFF TOTAL CELLS COUNTED 100 CELL DIFF
[2017-01-24 05:48] LABS: VERIFY COUNTS? YES
[2017-01-24 05:49] LABS: ANISOCYTOSIS 1+; HYPOCHROMIA 1+; POLYCHROMASIA 1+
[2017-01-24 05:50] LABS: LARGE PLATELETS 1+
[2017-01-24] MEDS: CARVEDILOL 3.125 MG TABLET PO SCH (10:21)
[2017-01-24] MEDS: FAMOTIDINE 20 MG TABLET PO SCH (10:21)
[2017-01-24] MEDS: OMEPRAZOLE 20 MG CAPSULE.DR PO SCH (10:21)
[2017-01-24] MEDS: FLUTICASONE/VILANTEROL 100-25MCG/INH INH SCH (10:21)
[2017-01-24] MEDS: POTASSIUM CHLORIDE 10 MEQ TABLET.ER PO SCH (10:22)
[2017-01-24] MEDS: SENNA/DOCUSATE TABLET PO SCH (10:22)
[2017-01-24] MEDS: FUROSEMIDE 20 MG TABLET PO SCH ×2 (10:25→21:00)
[2017-01-24] MEDS ORDERED: KETOROLAC 30 MG/1 ML IVPush ONE (10:30)
[2017-01-24 12:36] VITALS: BP 124/63
[2017-01-24] MEDS: METHOCARBAMOL 500 MG TABLET PO SCH ×3 (12:57→21:42)
[2017-01-24 18:57] VITALS: BP 139/70
[2017-01-24] MEDS ORDERED: FUROSEMIDE 40 MG TABLET ONE (21:33)
[2017-01-24] MEDS ORDERED: DIPHENHYDRAMINE 50 MG CAPSULE PO PRN (23:30)
[2017-01-25 00:22] VITALS: BP 151/74
[2017-01-25] MEDS ORDERED: KETOROLAC 30 MG/1 ML IVPush ONE (01:00)
[2017-01-25] MEDS: ACETAMINOPHEN 325 MG TABLET PO PRN ×2 (01:40→14:22)
[2017-01-25] MEDS ORDERED: MORPHINE SULFATE 4 MG/ML, 1ML IVPush PRN (03:00)
[2017-01-25 04:32] LABS: HEMATOCRIT 27.2 % (34.6-47.8); HEMOGLOBIN 8.8 g/dL (11.7-16.4); WHITE BLOOD COUNT 32.9 x10^3/uL (3.4-10)
[2017-01-25 04:37] LABS: BLOOD UREA NITROGEN 9 mg/dL (7-18)
[2017-01-25 05:15] LABS: DIFF TOTAL CELLS COUNTED 100 CELL DIFF
[2017-01-25 05:18] LABS: ANISOCYTOSIS 1+; VERIFY COUNTS? YES
[2017-01-25 05:20] LABS: HYPOCHROMIA 1+; POLYCHROMASIA 1+
[2017-01-25 05:22] LABS: LARGE PLATELETS 1+
[2017-01-25] MEDS: METHOCARBAMOL 500 MG TABLET PO SCH ×3 (06:32→19:57)
[2017-01-25 06:55] VITALS: BP 114/52
[2017-01-25] MEDS: POTASSIUM CHLORIDE 10 MEQ TABLET.ER PO SCH (09:47)
[2017-01-25] MEDS: FLUTICASONE/VILANTEROL 100-25MCG/INH INH SCH (09:47)
[2017-01-25] MEDS: OMEPRAZOLE 20 MG CAPSULE.DR PO SCH (09:47)
[2017-01-25] MEDS: FUROSEMIDE 20 MG TABLET PO SCH ×2 (09:48→19:57)
[2017-01-25] MEDS: CARVEDILOL 3.125 MG TABLET PO SCH (09:48)
[2017-01-25] MEDS: SENNA/DOCUSATE TABLET PO SCH (09:48)
[2017-01-25] MEDS: FAMOTIDINE 20 MG TABLET PO SCH (09:48)
[2017-01-25 13:13] VITALS: BP 104/53
[2017-01-25 18:28] VITALS: BP 147/71
[2017-01-25] MEDS ORDERED: HYDROmorphone 1 MG/ML, 1ML IM PRN (18:30)
[2017-01-26 03:27] VITALS: BP 100/63
[2017-01-26 04:49] LABS: HEMATOCRIT 29.4 % (34.6-47.8); HEMOGLOBIN 9.5 g/dL (11.7-16.4); WHITE BLOOD COUNT 35.3 x10^3/uL (3.4-10)
[2017-01-26 04:56] LABS: BLOOD UREA NITROGEN 5 mg/dL (7-18)
[2017-01-26 04:59] LABS: ASPARTATE AMINO TRANSFERASE 17 U/L (15-37)
[2017-01-26 05:59] LABS: DIFF TOTAL CELLS COUNTED 100 CELL DIFF
[2017-01-26 06:01] LABS: ANISOCYTOSIS 1+; HYPOCHROMIA 1+; POLYCHROMASIA 1+; VERIFY COUNTS? YES
[2017-01-26 06:03] LABS: LARGE PLATELETS 1+
[2017-01-26 06:48] VITALS: BP 121/59
[2017-01-26] MEDS: FLUTICASONE/VILANTEROL 100-25MCG/INH INH SCH (09:38)
[2017-01-26] MEDS: CARVEDILOL 3.125 MG TABLET PO SCH (09:39)
[2017-01-26] MEDS: FAMOTIDINE 20 MG TABLET PO SCH (09:39)
[2017-01-26] MEDS: FUROSEMIDE 20 MG TABLET PO SCH ×2 (09:39→20:34)
[2017-01-26] MEDS: POTASSIUM CHLORIDE 10 MEQ TABLET.ER PO SCH (09:39)
[2017-01-26] MEDS: OMEPRAZOLE 20 MG CAPSULE.DR PO SCH (09:39)
[2017-01-26] MEDS: SENNA/DOCUSATE TABLET PO SCH (09:40)
[2017-01-26] MEDS: ACETAMINOPHEN 325 MG TABLET PO PRN (09:55)
[2017-01-26 13:16] VITALS: BP 92/51
[2017-01-26] MEDS: PIPERACILLIN/TAZO/PMX 4.5GM 100 ML IV SCH ×2 (13:56→20:33)
[2017-01-26 18:47] VITALS: BP 100/61
[2017-01-26] MEDS ORDERED: ONDANSETRON 2MG/ML, 2ML IVPush PRN (19:30)
[2017-01-26] MEDS ORDERED: POLYETHYLENE GLYCOL 17 GM PACKET PO PRN (19:30)
[2017-01-26] MEDS ORDERED: BISACODYL 10 MG SUPP PR PRN (19:30)
[2017-01-26] MEDS: CYCLOBENZAPRINE 10 MG TABLET PO PRN (20:34)
[2017-01-26] MEDS: DIPHENHYDRAMINE 50 MG CAPSULE PO PRN (20:35)
[2017-01-26] MEDS: HYDROmorphone 1 MG/ML, 1ML IM PRN (23:12)
[2017-01-27 01:14] VITALS: BP 111/64
[2017-01-27 04:29] LABS: HEMATOCRIT 29.1 % (34.6-47.8); HEMOGLOBIN 9.4 g/dL (11.7-16.4); WHITE BLOOD COUNT 34.8 x10^3/uL (3.4-10)
[2017-01-27 04:43] LABS: BLOOD UREA NITROGEN 10 mg/dL (7-18)
[2017-01-27 04:47] LABS: ASPARTATE AMINO TRANSFERASE 11 U/L (15-37)
[2017-01-27 05:04] LABS: DIFF TOTAL CELLS COUNTED 100 CELL DIFF
[2017-01-27 05:07] LABS: ANISOCYTOSIS 1+; HYPOCHROMIA 1+; POLYCHROMASIA 1+; VERIFY COUNTS? YES
[2017-01-27 05:08] LABS: LARGE PLATELETS 1+
[2017-01-27] MEDS: ACETAMINOPHEN 325 MG TABLET PO PRN ×3 (05:51→19:36)
[2017-01-27] MEDS: PIPERACILLIN/TAZO/PMX 4.5GM 100 ML IV SCH (05:51)
[2017-01-27 06:57] VITALS: BP 93/55
[2017-01-27] MEDS: FLUTICASONE/VILANTEROL 100-25MCG/INH INH SCH (10:08)
[2017-01-27] MEDS: POTASSIUM CHLORIDE 10 MEQ TABLET.ER PO SCH (10:08)
[2017-01-27] MEDS: FAMOTIDINE 20 MG TABLET PO SCH (10:09)
[2017-01-27] MEDS: SENNA/DOCUSATE TABLET PO SCH (10:09)
[2017-01-27] MEDS: OMEPRAZOLE 20 MG CAPSULE.DR PO SCH (10:09)
[2017-01-27] MEDS: CYCLOBENZAPRINE 10 MG TABLET PO PRN ×2 (12:27→19:36)
[2017-01-27 13:22] VITALS: BP 99/59
[2017-01-27 19:32] VITALS: BP 104/63
[2017-01-27] MEDS: DIPHENHYDRAMINE 50 MG CAPSULE PO PRN (21:54)
[2017-01-28 00:45] VITALS: BP 96/59
[2017-01-28] MEDS: HYDROmorphone 1 MG/ML, 1ML IM PRN (01:11)
[2017-01-28 07:42] VITALS: BP 104/62
[2017-01-28] MEDS: CARVEDILOL 3.125 MG TABLET PO SCH (09:55)
[2017-01-28] MEDS: OMEPRAZOLE 20 MG CAPSULE.DR PO SCH (09:55)
[2017-01-28] MEDS: SENNA/DOCUSATE TABLET PO SCH (09:55)
[2017-01-28] MEDS: FLUTICASONE/VILANTEROL 100-25MCG/INH INH SCH (09:57)
[2017-01-28] MEDS: FAMOTIDINE 20 MG TABLET PO SCH (09:59)
[2017-01-28 10:08] VITALS: BP 134/72
[2017-01-28] MEDS: CYCLOBENZAPRINE 10 MG TABLET PO PRN ×2 (14:02→19:42)
[2017-01-28 15:32] VITALS: BP 129/67
[2017-01-28 19:43] VITALS: BP 134/72
[2017-01-29 03:33] VITALS: BP 116/71
[2017-01-29 08:06] VITALS: BP 122/66
[2017-01-29] MEDS: FLUTICASONE/VILANTEROL 100-25MCG/INH INH SCH (11:28)
[2017-01-29] MEDS: FAMOTIDINE 20 MG TABLET PO SCH (11:29)
[2017-01-29] MEDS: OMEPRAZOLE 20 MG CAPSULE.DR PO SCH (11:29)
[2017-01-29] MEDS: CARVEDILOL 3.125 MG TABLET PO SCH (11:29)
[2017-01-29] MEDS ORDERED: HYDROmorphone 1 MG/ML, 1ML IV PRN (11:30)
[2017-01-29] MEDS: SENNA/DOCUSATE TABLET PO SCH (11:30)
[2017-01-29 14:32] VITALS: BP 125/71
[2017-01-29] MEDS: ACETAMINOPHEN 325 MG TABLET PO PRN (17:54)
[2017-01-29 18:43] VITALS: BP 130/70
[2017-01-29 18:54] VITALS: BP 119/68
[2017-01-30 01:14] VITALS: BP 103/72
[2017-01-30] MEDS: DIPHENHYDRAMINE 50 MG CAPSULE PO PRN (02:51)
[2017-01-30 05:13] LABS: HEMATOCRIT 29.7 % (34.6-47.8); HEMOGLOBIN 9.4 g/dL (11.7-16.4)
[2017-01-30 05:16] LABS: WHITE BLOOD COUNT 56.3 x10^3/uL (3.4-10)
[2017-01-30 05:23] LABS: BLOOD UREA NITROGEN 20 mg/dL (7-18)
[2017-01-30 05:35] LABS: ASPARTATE AMINO TRANSFERASE 14 U/L (15-37)
[2017-01-30 05:43] LABS: DIFF TOTAL CELLS COUNTED 100 CELL DIFF
[2017-01-30 05:45] LABS: ANISOCYTOSIS 1+; POLYCHROMASIA 1+; VERIFY COUNTS? YES
[2017-01-30 05:46] LABS: LARGE PLATELETS 1+; SMUDGE CELLS 1+
[2017-01-30 05:49] LABS: C-REACTIVE PROTEIN, QUANT > 19.00 mg/dL (0.02-0.49)
[2017-01-30 08:41] VITALS: BP 103/72
[2017-01-30] MEDS: FLUTICASONE/VILANTEROL 100-25MCG/INH INH SCH (09:45)
[2017-01-30] MEDS: CARVEDILOL 3.125 MG TABLET PO SCH (09:46)
[2017-01-30] MEDS: OMEPRAZOLE 20 MG CAPSULE.DR PO SCH (09:46)
[2017-01-30] MEDS: FAMOTIDINE 20 MG TABLET PO SCH (09:46)
[2017-01-30] MEDS: CYCLOBENZAPRINE 10 MG TABLET PO PRN (09:46)
[2017-01-30] MEDS: SENNA/DOCUSATE TABLET PO SCH (09:51)
[2017-01-30 13:49] VITALS: BP 131/61
[2017-01-30] MEDS: MEROPENEM 1 GM in SODIUM CHLORIDE 0.9% 100 ML IV SCH (16:56)
[2017-01-30] MEDS ORDERED: DILTIAZEM 5 MG/ML, 5ML IVPush ONE (18:00)
[2017-01-30] MEDS: DAPTOMYCIN 370 MG in SODIUM CHLORIDE 0.9% 100 ML IVPB SCH (18:35)
[2017-01-30] MEDS: D5%-0.9% NACL 1,000 ML IV SCH (18:37)
[2017-01-30 19:34] VITALS: BP 124/64
[2017-01-30 20:13] LABS: IS PT STATUS REG ER OR PRE ER? NO
[2017-01-30 22:56] VITALS: BP 129/73
[2017-01-30] MEDS: ACETAMINOPHEN 325 MG TABLET PO PRN (22:58)
[2017-01-30] MEDS: DILTIAZEM 5 MG/ML, 5ML IVPush PRN (22:58)
[2017-01-31 01:19] VITALS: BP 104/58
[2017-01-31 01:48] LABS: IS PT STATUS REG ER OR PRE ER? NO
[2017-01-31] MEDS: D5%-0.9% NACL 1,000 ML IV SCH ×2 (04:27→16:55)
[2017-01-31] MEDS: MEROPENEM 1 GM in SODIUM CHLORIDE 0.9% 100 ML IV SCH ×2 (04:27→16:56)
[2017-01-31 06:28] LABS: HEMATOCRIT 26.4 % (34.6-47.8); HEMOGLOBIN 8.3 g/dL (11.7-16.4)
[2017-01-31 06:39] LABS: ASPARTATE AMINO TRANSFERASE 17 U/L (15-37); BLOOD UREA NITROGEN 25 mg/dL (7-18)
[2017-01-31 06:42] LABS: IS PT STATUS REG ER OR PRE ER? NO
[2017-01-31 06:53] LABS: DIFF TOTAL CELLS COUNTED 100 CELL DIFF
[2017-01-31 07:37] LABS: WHITE BLOOD COUNT 63.3 x10^3/uL (3.4-10)
[2017-01-31 08:34] VITALS: BP 110/68
[2017-01-31] MEDS: SENNA/DOCUSATE TABLET PO SCH (08:34)
[2017-01-31] MEDS: FAMOTIDINE 20 MG TABLET PO SCH (08:34)
[2017-01-31] MEDS: FLUTICASONE/VILANTEROL 100-25MCG/INH INH SCH (08:34)
[2017-01-31] MEDS: OMEPRAZOLE 20 MG CAPSULE.DR PO SCH (08:34)
[2017-01-31] MEDS: CARVEDILOL 3.125 MG TABLET PO SCH (08:35)
[2017-01-31 08:47] LABS: VERIFY COUNTS? YES
[2017-01-31 13:35] VITALS: BP 112/65
[2017-01-31] MEDS: DAPTOMYCIN 370 MG in SODIUM CHLORIDE 0.9% 100 ML IVPB SCH (18:25)
[2017-01-31 20:21] VITALS: BP 128/71
[2017-02-01] VITALS (7 sets, daily range): BP systolic 112–145; BP diastolic 53–79
[2017-02-01] MEDS: DILTIAZEM 5 MG/ML, 5ML IVPush PRN ×2 (01:25→20:13)
[2017-02-01] MEDS: ACETAMINOPHEN 325 MG TABLET PO PRN (02:05)
[2017-02-01] MEDS: D5%-0.9% NACL 1,000 ML IV SCH ×3 (02:05→22:00)
[2017-02-01 05:36] LABS: HEMOGLOBIN 8.4 g/dL (11.7-16.4)
[2017-02-01 05:41] LABS: WHITE BLOOD COUNT 70.4 x10^3/uL (3.4-10)
[2017-02-01] MEDS: MEROPENEM 1 GM in SODIUM CHLORIDE 0.9% 100 ML IV SCH ×2 (05:43→18:36)
[2017-02-01] MEDS: HYDROmorphone 1 MG/ML, 1ML IV PRN ×2 (05:43→12:22)
[2017-02-01 05:48] LABS: ASPARTATE AMINO TRANSFERASE 20 U/L (15-37); BLOOD UREA NITROGEN 22 mg/dL (7-18)
[2017-02-01 06:57] LABS: DIFF TOTAL CELLS COUNTED 100 CELL DIFF
[2017-02-01 07:00] LABS: VERIFY COUNTS? YES
[2017-02-01 07:01] LABS: ANISOCYTOSIS 1+
[2017-02-01] MEDS: OMEPRAZOLE 20 MG CAPSULE.DR PO SCH (09:00)
[2017-02-01] MEDS: CARVEDILOL 3.125 MG TABLET PO SCH (09:00)
[2017-02-01] MEDS: FAMOTIDINE 20 MG TABLET PO SCH (09:00)
[2017-02-01] MEDS: FLUTICASONE/VILANTEROL 100-25MCG/INH INH SCH (09:00)
[2017-02-01] MEDS: SENNA/DOCUSATE TABLET PO SCH (09:00)
[2017-02-01] MEDS: FLUCONAZOLE 400 MG/200 ML 200 ML IV SCH (11:39)
[2017-02-01] MEDS ORDERED: MORPHINE SULFATE 4 MG/ML, 1ML IVPush PRN (14:30)
[2017-02-01] MEDS: DAPTOMYCIN 370 MG in SODIUM CHLORIDE 0.9% 100 ML IVPB SCH (20:14)
[2017-02-02 02:11] VITALS: BP 133/68
[2017-02-02] MEDS: OXYcodone/APAP 5/325MG TABLET PO PRN ×2 (02:53→22:27)
[2017-02-02] MEDS: DILTIAZEM 5 MG/ML, 5ML IVPush PRN ×2 (02:54→20:25)
[2017-02-02] MEDS: MEROPENEM 1 GM in SODIUM CHLORIDE 0.9% 100 ML IV SCH (05:50)
[2017-02-02 06:33] VITALS: BP 126/71
[2017-02-02 08:52] LABS: ASPARTATE AMINO TRANSFERASE 30 U/L (15-37); BLOOD UREA NITROGEN 20 mg/dL (7-18)
[2017-02-02 09:01] LABS: HEMATOCRIT 26.2 % (34.6-47.8); HEMOGLOBIN 8.1 g/dL (11.7-16.4)
[2017-02-02 09:03] LABS: DIFF TOTAL CELLS COUNTED 100 CELL DIFF
[2017-02-02 09:04] LABS: WHITE BLOOD COUNT 75.6 x10^3/uL (3.4-10)
[2017-02-02 09:11] LABS: VERIFY COUNTS? YES
[2017-02-02 09:17] LABS: ANISOCYTOSIS 1+; LARGE PLATELETS 1+
[2017-02-02] MEDS: SENNA/DOCUSATE TABLET PO SCH (10:33)
[2017-02-02] MEDS: OMEPRAZOLE 20 MG CAPSULE.DR PO SCH (10:34)
[2017-02-02] MEDS: FLUTICASONE/VILANTEROL 100-25MCG/INH INH SCH (10:34)
[2017-02-02] MEDS: FAMOTIDINE 20 MG TABLET PO SCH (10:34)
[2017-02-02] MEDS: CARVEDILOL 3.125 MG TABLET PO SCH (10:35)
[2017-02-02] MEDS: FLUCONAZOLE 400 MG/200 ML 200 ML IV SCH (10:35)
[2017-02-02] MEDS: D5%-0.9% NACL 1,000 ML IV SCH (10:36)
[2017-02-02 12:15] VITALS: BP 138/70
[2017-02-02] MEDS ORDERED: D5%-0.9% NACL 1,000 ML IV SCH (16:00)
[2017-02-02] MEDS ORDERED: ONDANSETRON 2MG/ML, 2ML IVPush PRN (16:00)
[2017-02-02] MEDS ORDERED: CYCLOBENZAPRINE 10 MG TABLET PO PRN (16:00)
[2017-02-02] MEDS ORDERED: MORPHINE SULFATE 4 MG/ML, 1ML IVPush PRN (16:00)
[2017-02-02] MEDS ORDERED: BISACODYL 10 MG SUPP PR PRN (16:00)
[2017-02-02] MEDS ORDERED: ACETAMINOPHEN 325 MG TABLET PO PRN (16:00)
[2017-02-02 19:13] VITALS: BP 131/80
[2017-02-03 01:22] VITALS: BP 135/75
[2017-02-03] MEDS: DILTIAZEM 5 MG/ML, 5ML IVPush PRN ×2 (02:09→13:06)
[2017-02-03 06:35] VITALS: BP 140/77
[2017-02-03 09:07] VITALS: BP 123/76
[2017-02-03] MEDS: CARVEDILOL 3.125 MG TABLET PO SCH (09:08)
[2017-02-03] MEDS: FAMOTIDINE 20 MG TABLET PO SCH (09:08)
[2017-02-03] MEDS: OMEPRAZOLE 20 MG CAPSULE.DR PO SCH (09:13)
[2017-02-03] MEDS: FLUTICASONE/VILANTEROL 100-25MCG/INH INH SCH (09:14)
[2017-02-03] MEDS: SENNA/DOCUSATE TABLET PO SCH (09:14)
[2017-02-03] MEDS: FLUCONAZOLE 400 MG/200 ML 200 ML IV SCH (10:48)
[2017-02-03] MEDS ORDERED: POTASSIUM PHOSPHATE 44 MEQ in SODIUM CHLORIDE 0.9% 500 ML IV ONE (11:30)
[2017-02-03 12:15] LABS: HEMATOCRIT 26.1 % (34.6-47.8); HEMOGLOBIN 8.4 g/dL (11.7-16.4)
[2017-02-03 12:19] LABS: WHITE BLOOD COUNT 98.4 x10^3/uL (3.4-10)
[2017-02-03] MEDS: SODIUM CHLORIDE 0.9% 1,000 ML IV SCH (13:01)
[2017-02-03 13:04] LABS: DIFF TOTAL CELLS COUNTED 100 CELL DIFF
[2017-02-03 13:07] LABS: COMPLEMENT C3 109 mg/dL (82-167); COMPLEMENT C4 28 mg/dL (14-44); INTERMYOFIBRILLAR AB Negative (Neg:<1:20); MITOCHONDRIAL (M2) AB 20.9 Units (0.0-20.0); PARIETAL CELL AB 18.5 Units (0.0-20.0); RA LATEX TURBIDITY 15.2 IU/mL (0.0-13.9); SARCOLEMMA AB Negative (Neg:<1:20); STRIATION AB Negative (Neg:<1:40); THYROID PEROXIDASE (TPO) AB 46 IU/mL (0-34)
[2017-02-03 13:08] LABS: ANISOCYTOSIS 2+; MICROCYTOSIS 1+; VERIFY COUNTS? YES
[2017-02-03 13:10] LABS: LARGE PLATELETS 1+
[2017-02-03 14:00] VITALS: BP 135/80
[2017-02-03 20:00] VITALS: BP 145/70
[2017-02-04 02:17] VITALS: BP 120/69
[2017-02-04] MEDS: SODIUM CHLORIDE 0.9% 1,000 ML IV SCH (04:35)
[2017-02-04 06:28] LABS: BLOOD UREA NITROGEN 44 mg/dL (7-18)
[2017-02-04 06:29] LABS: HEMATOCRIT 27.5 % (34.6-47.8); HEMOGLOBIN 8.4 g/dL (11.7-16.4)
[2017-02-04 06:34] LABS: WHITE BLOOD COUNT 130.2 x10^3/uL (3.4-10)
[2017-02-04 06:37] LABS: DIFF TOTAL CELLS COUNTED 100 CELL DIFF
[2017-02-04 06:48] LABS: ANISOCYTOSIS 2+
[2017-02-04 06:49] LABS: GIANT PLATELETS 1+
[2017-02-04 06:50] LABS: VERIFY COUNTS? YES
[2017-02-04 08:10] VITALS: BP 104/32
[2017-02-04] MEDS ORDERED: LIDOCAINE 1%, 20ML ONE (09:19)
[2017-02-04 15:50] LABS: RHEUMATOID FACTOR SCREEN NEGATIVE (NEGATIVE)
== END 2017-02-04 16:00 | disposition expired | DRG 564 ==
LOC: ED 01-22 00:31 → EDIP 01-22 00:55 → 4EST 01-22 05:43 → 3NW 01-22 17:11 → 3NE 01-30 00:36 → 4EST 01-30 17:32
PROVIDERS: ADMIT Hospitalist; ATTEND Hospitalist
PROC: 0S9C3ZZ Drainage of Right Knee Joint, Percutaneous Approach (ICD-10-PCS; principal; 2017-01-23)
PROC: 0X943ZZ Drainage of Right Axilla, Percutaneous Approach (ICD-10-PCS; 2017-01-23)
DX: M25.461 Effusion, right knee (principal); J96.21 Acute and chronic respiratory failure with hypoxia; E43 Unspecified severe protein-calorie malnutrition; G93.40 Encephalopathy, unspecified; N17.9 Acute kidney failure, unspecified; J44.0 Chronic obstructive pulmonary disease with (acute) lower respiratory infection; I11.0 Hypertensive heart disease with heart failure; I50.30 Unspecified diastolic (congestive) heart failure; D69.6 Thrombocytopenia, unspecified; H90.5 Unspecified sensorineural hearing loss; E87.1 Hypo-osmolality and hyponatremia; M11.261 Other chondrocalcinosis, right knee; D72.829 Elevated white blood cell count, unspecified; E11.9 Type 2 diabetes mellitus without complications; K21.9 Gastro-esophageal reflux disease without esophagitis; D64.9 Anemia, unspecified; I25.2 Old myocardial infarction; E03.9 Hypothyroidism, unspecified; G43.909 Migraine, unspecified, not intractable, without status migrainosus; E83.39 Other disorders of phosphorus metabolism; G89.29 Other chronic pain; I08.0 Rheumatic disorders of both mitral and aortic valves; I25.10 Atherosclerotic heart disease of native coronary artery without angina pectoris; I48.91 Unspecified atrial fibrillation; I77.819 Aortic ectasia, unspecified site; Z66 Do not resuscitate; Z86.61 Personal history of infections of the central nervous system; Z86.711 Personal history of pulmonary embolism; Z86.79 Personal history of other diseases of the circulatory system; Z99.81 Dependence on supplemental oxygen; Z88.8 Allergy status to other drugs, medicaments and biological substances
CPT/HCPCS: 10160; 20606; 20610; 36415; 71010; 71275; 72110; 75989; 76770; 80048; 80053; 81001; 81003; 81206; 81207; 82550; 82962; 83516; 83735; 83880; 84100; 84145; 84484; 85025; 85379; 85610; 85651; 85730; 85810; 86038; 86140; 86160; 86225; 86235; 86255; 86256; 86376; 86430; 86431; 87040; 87070; 87075; 87077; 87086; 87106; 87186; 87205; 88112; 88237; 88264; 88280; 89050; 89060; 93005; 93306; 96374; 96375; J0878; J1170; J1450; J1885; J2185; J2405; J2543; J3490; J7042; Q9967; J7030; J7040